=== PATIENT | female | born 1990 | race Caucasian/White ===

== ENCOUNTER 2019-06-22 16:10 | Emergency (ER) | payer BC, SELFPAY ==
[2019-06-22 16:11] VITALS: BP 143/100; PULSE 93; RESP 16; TEMP 36.4; O2SAT 99; BMI 31.4
[2019-06-22 16:31] VITALS: BP 144/90; PULSE 85; RESP 12; O2SAT 97
--- NOTE | 2019-06-22 16:48 | CT_ITS ---
STUDY: CTA HEAD AND NECK WITH CONTRAST REASON FOR EXAM: Female, 28 years old. PARESTHESIA TO RT SIDE OF BODY RADIATION DOSAGE (If Supplied By Facility): CTDIvol = ( 26.88 ) mGy, DLP = ( 1541.92 ) mGycm TECHNIQUE: CT angiography was performed with a multi-detector CT scanner. Data acquisition was obtained from the skull base through the vertex following intravenous administration of IV Isovue 370 100. MIP images were reconstructed from the axial data set. Post-processing of the angiographic images was performed, with multiplanar reformation and 3D reconstruction. Individualized dose optimization techniques were used for this CT. COMPARISON: No relevant priors. FINDINGS: Normal bilateral petrous carotid arteries. Normal right cavernous carotid artery with a normal supraclinoid bifurcation. Normal left cavernous carotid artery with a normal supraclinoid bifurcation. Normal right A1 segments of the anterior cerebral artery. Normal left A1 segments of the anterior cerebral artery. Normal intact anterior communicating artery (ACOM). Normal bilateral A2 segments of the anterior cerebral arteries. Normal right M1 and M2 segments of the middle cerebral arteries, with a normal M1 bifurcation. Normal left M1 and M2 segments of the middle cerebral arteries, with a normal M1 bifurcation. Normal right posterior communicating artery (PCOM). Normal left posterior communicating artery (PCOM). Normal bilateral vertebral arteries. Normal basilar artery with a normal basilar bifurcation. The visualized bilateral superior cerebellar (SCA) arteries are normal. Normal bilateral P1, P2 and visualized P3 segments of the posterior cerebral arteries. There is no demonstrated aneurysm of the [place]. There is no demonstrated abnormality of the visualized brain. AORTIC ARCH: Normal visualized aortic arch. Normal origins of the brachiocephalic, left common carotid, and left subclavian arteries. RIGHT CAROTID ARTERIES: Normal right common carotid artery (CCA). Normal right common carotid bulb. Normal origin of the right internal carotid (ICA) artery without a hemodynamically significant stenosis. Normal visualized cervical portion of the right internal carotid artery. Normal origin of the right external carotid artery (ECA). LEFT CAROTID ARTERIES: Normal left common carotid artery (CCA). Normal left common carotid bulb. Normal origin of the left internal carotid (ICA) artery without a hemodynamically significant stenosis. Normal visualized cervical portion of the left internal carotid artery. Normal origin of the left external carotid artery (ECA). VERTEBRAL ARTERIES: Normal bilateral vertebral arteries. CT/CTA Head AND Neck W/ Contrast IMPRESSION: Normal CTA Head and neck with contrast. Electronically Signed: Sushil Moya MD at 18:43 EST , Service support ,
--- NOTE | 2019-06-22 16:49 | ED.VISSUMM ---
- ER Visit Summary Date of Service: 06/22/19 Chief Complaint: [Paresthesia of the right side of body] History of Present Illness: The patient is a 28 F [presents to the emergency department complaint of paresthesias to the right side of the body that she first noticed around 1 AM. Patient thinks she rolled over bed and felt that quite have normal sensation to the right side of the face and arm. Patient also noticed similar symptoms in her right leg. Patient states that she has a history of Chiari malformation and has had some odd neurologic symptoms related to that. Patient denies any falls or head injuries. He denies any vomiting or diarrhea. No history of MS. She denies any vision changes currently. She did have a little bit of a right-sided temporal headache that is now mostly resolved. She gives history that she did crack her own neck last evening prior to going to bed. Patient is a physician licensed physical therapist assistant and has some concern about possible vertebral dissection. There is no family history of brain tumors or brain aneurysms.] Physical Examination: [HEENT-PERRLA, EOMI. Cranial nerves II through XII grossly intact. TMs clear. Mucous membranes moist. No adenopathy. Cardiovascular-regular rate and rhythm without murmur or ectopy Lungs-clear to auscultation, chest wall stable without crepitus or subcu emphysema Abdomen-normoactive bowel sounds, soft, nontender, no rebound or rigidity, no peritoneal signs. Neuro ykuo-yuzrub-bjxg and heel linton testing within normal limits, negative Romberg, negative, fundi benign. NIH stroke scale is a 1 given for paresthesias Extremities-intact ?4, normal range of motion, normal pulses, atraumatic] Test Results: [CBC with differential obtained was normal. Chemistries were normal. hCG was negative. CTA of head and neck was normal.] Emergency Department Course and Treatment: [Patient was placed on a potline monitor on arrival. An IV line was established.] Treatment Plan: [Patient decision making with patient. I discussed with her that I was not clear if the etiology of her paresthesias. We discussed the possibility of stroke although I feel this is less likely given her age and medical history. I cannot rule out a hemiplegic type migraine or complex migraine as the cause. We discussed admission for further testing such as MRI. Patient was made aware that we do not have neurology coverage and we would need to transfer her to a larger facility to have more testing performed. At this time patient does not feel like she would like to pursue that further and does not want to be admitted or transferred. Patient had seen neurology in the past however the neurologist she was seeing apparently moved out of town. She will attempt to find neurology follow-up if her symptoms persist. Patient understands to return if weakness in extremities difficulty with speech, vision changes, or conditions worsen anyway. Patient currently is not a TPA candidate given her symptoms of greater than 16 hours and low NIH of 1.] Disposition: [Discharged home in stable condition] Impression: [Paresthesias-etiology uncertain] This note was generated with [employer] dictation software. It may contain incorrect words, spelling, and punctuation that were not noted in review of the chart prior to signing ED Disposition - Plan for ED Patient: Referrals: Care Physician,No Primary [Primary Care Provider] -
[2019-06-22] MEDS: 0.9% Normal Saline 1,000 ML 150 ML IV (16:59)
[2019-06-22 17:13] LABS: Absolute Lymphocyte Count 1.84 X10^3/uL (0.83-4.51); Absolute Neutrophil Count 4.3 X10^3/uL (2.0-7.7); Basophil# 0.02 X10^3/uL; Basophil% 0.3 % (0-1); Eosinophil# 0.08 X10^3/uL; Eosinophils% 1.2 % (0-5); Hematocrit 38.6 % (37-47); Lymphocyte # 1.84 X10^3/ul (4.0); Lymphocyte % 27.2 % (19-41); Mean Corp Hgb Conc 33.7 g/dL (32-36); Mean Corpuscular Hgb 29.9 pg (27.0-32.0); Mean Corpuscular Volume 88.7 fL (81-99); Mean Platelet Vol. 10.3 fl (6.2-12.0); Monocyte# 0.46 X10^3/uL; Monocyte% 6.8 % (0-10); NRBC Flagged by Analyzer 0 % (0-5); Neutrophil # 4.34 X10^3/uL (2.7-7.7); Neutrophil % 64.2 % (47-70); Platelet Count 219 K/mm3 (150-450); RBC Distribution Width CV 11.9 % (11.6-14.6); RBC Distribution Width SD 38.6 fl (35.1-43.9); Red Blood Count 4.35 M/mm3 (4.2-5.4); White Blood Count 6.8 K/mm3 (4.4-11.0)
[2019-06-22 17:23] LABS: Internal QC Validated? YES +Cl - CLEAR BKGD
[2019-06-22 17:31] LABS: Anion Gap 9 (5-15); BUN 10 mg/dL (7-18); BUN/Creat Ratio 18.1 RATIO (10-20); Calcium,Total 8.7 mg/dL (8.5-10.1); Chloride 109 mmol/L (98-107); Creatinine, Serum 0.55 mg/dL (0.55-1.02); EST Glomerular Filtration Rate 137 mL/min (>60); Est Glom Filt Rate - Afr Amer 165 mL/min (>60); Estimated Creatinine Clearance 129.15 ml/min; Glucose 103 mg/dL (74-106); Potassium 3.8 mmol/L (3.5-5.1); Pregnancy, Serum, hCG Quali. NEGATIVE Negative; Sodium Level 141 mmol/L (136-145)
[2019-06-22 18:23] VITALS: BP 121/100; PULSE 68; RESP 28; O2SAT 96
--- NOTE | 2019-06-22 19:04 | ED.DEP ---
ED Disposition - Plan for ED Patient: Instructions: Paraesthesias Referrals: Care Physician,No Primary [Primary Care Provider] - Tracy Leal MD [STAFF PHYSICIAN] - 3-5 Days
[2019-06-22 19:29] VITALS: BP 140/81; PULSE 71; RESP 14; O2SAT 98
== END 2019-06-22 19:33 | disposition home or self-care (01) ==
PROVIDERS: Emergency Provider Emergency Medicine
DX: R20.2 Paresthesia of skin (principal); F41.9 Anxiety disorder, unspecified; Z79.899 Other long term (current) drug therapy
CPT/HCPCS: 70496; 70498; 80048; 84703; 85025; 96360; 96361; 99284; J7030; Q9967; A4216

== ENCOUNTER 2024-12-23 19:05 | Emergency (ER) | payer OTHER, SELFPAY ==
[2024-12-23 19:06] VITALS: BP 123/90; PULSE 109; RESP 19; TEMP 36.7; O2SAT 98; BMI 33.6
[2024-12-23 23:28] LABS: Absolute Lymphocyte Count 1.83 X10^3/uL (0.83-4.51); Absolute Neutrophil Count 7.5 X10^3/uL (2.0-7.7); Basophil# 0.02 X10^3/uL; Basophil% 0.2 % (0-1); Eosinophil# 0.07 X10^3/uL; Eosinophils% 0.7 % (0-5); Hematocrit 37.9 % (37-47); Hemoglobin 12.6 g/dL (12.0-15.0); Lymphocyte # 1.83 X10^3/ul (0.83-4.51); Lymphocyte % 18.1 % (19-41); Mean Corp Hgb Conc 33.2 g/dL (32-36); Mean Corpuscular Hgb 29.4 pg (27.0-32.0); Mean Corpuscular Volume 88.6 fL (81-99); Monocyte% 6.9 % (0-10); NRBC Flagged by Analyzer 0 % (0-5); Neutrophil # 7.48 X10^3/uL (2.7-7.7); Neutrophil % 73.8 % (47-70); Platelet Count 192 K/mm3 (150-450); RBC Distribution Width SD 38.3 fl (35.1-43.9); Red Blood Count 4.28 M/mm3 (4.2-5.4); White Blood Count 10.1 K/mm3 (4.4-11.0)
--- NOTE | 2024-12-23 23:31 | EX.ED.UPPERE ---
HPI History of Present Illness Chief Complaint: Upper Extremity Injury Narrative Narrative: Chief complaint and HPI: Right upper extremity erythema and streaking. 34-year-old female without any significant past medical history presents for evaluation of right upper extremity erythema and streaking. Patient states that she has had eczema on her hypothenar eminence for the past several days. She had needles placed in her hand/forearm yesterday as a treatment for carpal tunnel states that it is similar to acupuncture but different. She states since then her area of eczema has become more tender and swollen and she has developed erythema around it that is streaking up the volar surface of the forearm. She denies any fever, chills, nausea, vomiting. Review of systems: See HPI Medications: As listed on the chart Allergies: As listed on the chart PFSH: Per chart Vital signs: As listed on the chart. Reviewed. Physical exam: Gen: A&O x3, NAD Head: Normocephalic, atraumatic Eyes: No sclera icterus, conjunctiva clear ENT: Moist mucous membranes CV: Mild tachycardia, regular rate, no murmurs Resp: Lungs CTA BL, no w/r/c Musc: Full ROM of the bilateral upper extremity, no deformity, there is a 0.5 cm nodule that is erythematous/tender/fluctuant on her hypothenar eminence- the erythema streaks up the volar surface of her forearm. Erythema stops at the proximal forearm. Compartments soft. Radial pulses +2. Good capillary refill. Skin: Warm, dry Neuro: Alert, oriented, grossly intact, sensation intact Psych: Cooperative, appropriate mood and affect PFS PFSH Medical History Hx of anxiety disorder Hx of attention deficit disorder Hx of seasonal allergies Obesity Home Medications ?Medication ?Instructions ?Recorded ?Last Taken ?Type tirzepatide 5 mg/0.5 mL 5 mg (0.5 mL) subcut QWEEK #2 mL 05/12/22 Unknown Rx subcutaneous pen injector (Mounjaro) Allergy/AdvReac Type Severity Reaction Status Date / Time No Known Allergies Allergy Verified 12/23/24 23:30 Family History Mother Anxiety Diabetes Heart disease Melanoma Father Anxiety Surgical History Hx of appendectomy Hx of tonsillectomy Social History household members: none housing: house current occupational status: employed current occupation: [employer] sexually active: Yes Smoking Status: Never smoker alcohol intake: current alcohol intake frequency: a few times a month substance use type: does not use what type of physical activity do you participate in: walking and yoga frequency: 3-4 times per week seatbelt use: always do you feel safe at home: Yes EXAM Physical Exam Const Vital Signs: 12/23/24 19:06 Temperature 98.1 F Temperature Source Oral Pulse Rate 109 H Respiratory Rate 19 H Blood Pressure 123/90 H Blood Pressure Mean 101 Pulse Ox 98 Oxygen Delivery Method Room Air MDM MDM MDM Narrative Medical decision making narrative: 34-year-old female without any significant past medical history presents for evaluation of right upper extremity erythema and streaking. Patient states she had eczema on her hypothenar eminence for the past several days. Had needling performed and then developed pain, swelling, fluctuance in the area of her eczema as well as lymphatic streaking. Denies any systemic symptoms such as fever, chills, nausea, vomiting. On presentation vitals are stable other than mild tachycardia. See physical exam findings. Differential diagnosis includes but is not limited to cellulitis, abscess, cyst, bacteremia. Patient states that the needling she experiences go down to the bone. I recommended x-ray of the hand to assess for deeper infection however patient declined. Recommended incision and drainage of the fluctuant lesion however patient declined. Will perform needle aspiration to assess for purulence. Patient in agreement to this. The area was prepped in the usual sterile manner. Using a 10 cc syringe and a 23-gauge needle the lesion was aspirated. A small amount of clear fluid oozed from the site without purulence. I was unable to obtain any of the clear fluid for culture. CBC, BMP, lactic acid unremarkable. Blood cultures were obtained. Given unremarkable laboratory workup, patient will be discharged home on Keflex and Bactrim for cellulitis. Strict return precautions were explained. Follow-up with PCP. Patient understand the plan. Patient stable to discharge home. Impression: 1. Right upper extremity cellulitis with lymphatic streaking Lab Data Labs: Laboratory Results - last 24 hr 12/23/24 23:21 WBC 10.1 RBC 4.28 Hgb 12.6 Hct 37.9 MCV 88.6 MCH 29.4 MCHC 33.2 RDW Std Deviation 38.3 RDW Coeff of Albert 12.0 Plt Count 192 MPV 10.0 Immature Gran % (Auto) 0.300 Neut % (Auto) 73.8 H Lymph % (Auto) 18.1 L [place] % (Auto) 6.9 Eos % (Auto) 0.7 Baso % (Auto) 0.2 Absolute Neuts (auto) 7.5 Absolute Lymphs (auto) 1.83 Nucleated RBC % 0 Discharge Plan Triage Chief Complaint: Upper Extremity Injury ED Provider: Garry Cooper Dx/Rx/DC Orders Prescriptions: No Action Mounjaro 5 mg/0.5 mL pen injector 5 mg subcut QWEEK Qty: 2 5RF Primary Care Provider: Shae Huber NP Referrals: Shae Huber NP, NEUROSURGICAL NURSE-C [Primary Care Provider] - Print Language: Yoruba
[2024-12-23 23:51] VITALS: BP 123/97; PULSE 94; RESP 16; O2SAT 98
[2024-12-23 23:52] VITALS: BP 123/97; PULSE 94; RESP 18; TEMP 36.8; O2SAT 98
[2024-12-24 00:01] LABS: Anion Gap 10 (5-15); BUN 9 mg/dL (4-19); BUN/Creat Ratio 13.5 RATIO (10-20); Calcium,Total 9.3 mg/dL (7.6-11.0); Carbon Dioxide 23.2 mmol/L (21.0-32.0); Chloride 102 mmol/L (98-108); Creatinine, Serum 0.68 mg/dL (0.70-1.20); EST Glomerular Filtration Rate 116 (>60); Glucose 100 mg/dL (70-99); Potassium 3.9 mmol/L (3.3-5.1); Sodium Level 135 mmol/L (133-145)
[2024-12-24 00:11] LABS: Lactic Acid < 1.0 mmol/L (0.0-2.0)
[2024-12-24] MEDS: Cephalexin 250 MG Capsule 500 MG PO (00:33)
[2024-12-24] MEDS: Smz/Tmp Ds Tablet 1 TABLET PO (00:33)
[2024-12-24 00:38] VITALS: BP 128/89; PULSE 91; RESP 17; TEMP 36.6; O2SAT 99
== END 2024-12-24 00:39 | disposition home or self-care (01) ==
PROVIDERS: Emergency Provider Surgery; PCP Nurse Practitioner Adult Health; Visit Provider Surgery
DX: L03.113 Cellulitis of right upper limb (principal); L30.9 Dermatitis, unspecified
CPT/HCPCS: 80048; 83605; 85025; 87040; 99284; A4216

== ENCOUNTER → 2025-01-20 | Outpatient (CLI) | payer OTHER, SELFPAY ==
[2025-01-23 10:08] LABS: G6PD Quant Test 265 (127-427); Red Blood Cell Count Test/G6PD 4.46 x10E6/uL (3.77-5.28)
== END | disposition home or self-care (01) ==
LOC: LAB 12:35 → LABSPEC 12:38
PROVIDERS: PCP Nurse Practitioner Adult Health; Referring Provider Nurse Practitioner Family; Visit Provider Nurse Practitioner Family
DX: R53.83 Other fatigue (principal)
CPT/HCPCS: 82955